=== PATIENT | female | born 1965 | race Caucasian/White ===

== ENCOUNTER 2019-10-02 12:00 | Inpatient (IN) | payer OTHER ==
--- NOTE | 2019-10-02 13:18 | PDOC ---
History of Present Illness - General Chief Complaint: Cold Symptoms Stated Complaint: PNEUMONIA Time Seen by Provider: 10/02/19 12:33 History Source: Patient - History of Present Illness Initial Comments: 10/02/19 13:14 54 yo F PMH HTN, HLD, psoriatic arthritis presents with 4 days subjective fevers , chills, and productive cough. Pt states that since sunday she has been having these symptoms. she states that she tried using Nyquil flu medication without relief. She went to urgent care today and was sent by EMS to ER bc her O2 sat was in the 80s. Pt denies SOB, CP, palpitations. 10/02/19 13:23 Past History - Past Medical History Allergies/Adverse Reactions: Allergies Allergy/AdvReac Type Severity Reaction Status Date / Time latex Allergy Verified 10/02/19 12:29 Home Medications: Ambulatory Orders Atenolol [Tenormin -] 100 mg PO DAILY 05/29/16 Atorvastatin Ca [Lipitor] 20 mg PO HS 05/29/16 Losartan/Hydrochlorothiazide [Losartan-Hctz 100-25 mg Tab] 1 each PO DAILY 05/29 Methotrexate Sodium [Trexall] 10 mg PO WEEKLY 10/02/19 Sulfadiazine 1,000 mg PO BID 10/02/19 COPD: No HTN: Yes Hypercholesterolemia: Yes - Psycho Social/Smoking Cessation Hx Smoking History: Never smoked Hx Alcohol Use: No Drug/Substance Use Hx: No Review of Systems - Review of Systems Able to Perform ROS?: Yes Constitutional: Yes: Chills, Fever. No: Weakness HEENTM: No: Difficulty Swallowing Respiratory: Yes: Cough, Productive cough. No: Shortness of Breath, Wheezing Cardiac (ROS): No: Chest Pain, Chest Tightness ABD/GI: No: Diarrhea, Nausea, Vomiting : No: Dysuria Musculoskeletal: Yes: Joint Pain Neurological: Yes: Headache *Physical Exam - Vital Signs Last Vital Signs Temp Pulse Resp BP Pulse Ox 98.3 F 83 22 H 105/56 L 95 10/02/19 12:30 10/02/19 12:30 10/02/19 12:30 10/02/19 12:30 10/02/19 12:30 - Physical Exam General Appearance: Yes: Nourished, Appropriately Dressed HEENT: positive: Normal Voice Respiratory/Chest: positive: Decreased Breath Sounds (at bases), Rhonchi (L>R ) , Wheezing. negative: Respiratory Distress, Accessory Muscle Use Gastrointestinal/Abdominal: positive: Normal Bowel Sounds, Soft. negative: Tender, Distended Extremity: positive: Normal Inspection Integumentary: positive: Normal Color, Dry, Warm Neurologic: positive: Fully Oriented ED Treatment Course - LABORATORY CBC & Chemistry Diagram: 10/02/19 13:20 10/02/19 13:20 - RADIOLOGY Radiology Studies Ordered: Category Date Time Status CHEST X-RAY PORTABLE* [RAD] Stat Radiology 10/02/19 12:53 Ordered Medical Decision Making - Medical Decision Making 10/02/19 13:28 54 yo F presenting with productive cough x 4 days r/o Left pna . will obtain CXR, BCx, CBC. will get flu swab -CMP -EKG 10/02/19 13:30 -questionable Hx of thyroid disorder. will order TSH 10/02/19 13:31 CBC reviewed. no leukocytosis 10/02/19 14:08 cmp reviewed, wnl flu swab negative 10/02/19 15:38 CXR reviewed: L lower pneumonia -ABG -pt desaturates to 84% when ambulates. saturates 92-94% on RA when sitting -ceftriaxone and azithro -admit to medicine Discharge - Discharge Information Problems reviewed: Yes Clinical Impression/Diagnosis: Community acquired pneumonia Qualifiers: Laterality: left Lung location: lower lobe of lung Qualified Code(s): J18.9 - Pneumonia, unspecified organism - Follow up/Referral Referrals: Lexy Graham [Primary Care Provider] - - Patient Discharge Instructions Patient Printed Discharge Instructions: DI for Pneumonia -- Adult Additional Instructions: You came to the hospital for fevers and a cough. We took a Chest X-Ray showing that you have a Left pneumonia. You Flu swab was negative. Please continue to take Augmentin for 5 days. Please continue to take your home medications as prescribed. Please follow up with your primary care physician regarding your healthcare. If you have any new, worsening, or concerning symptoms please return to the ED. - Post Discharge Activity
[2019-10-02 13:27] LABS: BASO % 0.6 % (0-2.0); EOS % 2.9 % (0-4.5); HEMATOCRIT 35.5 % (32.4-45.2); HEMOGLOBIN 11.5 GM/dL (10.7-15.3); LYMPH % 10.9 % (8-40); MCH 29.9 pg (25.7-33.7); MCHC 32.4 g/dl (32.0-36.0); MEAN CELL VOLUME 92.2 fl (80-96); MONO % 11.4 % (3.8-10.2); NEUT % 74.2 % (42.8-82.8); PLATELET COUNT 226 K/MM3 (134-434); RBC 3.85 M/mm3 (3.60-5.2); RDW 13.8 % (11.6-15.6)
[2019-10-02] MEDS ORDERED: ALBUTEROL SO4 2.5/IPRATROPIUM 0.5 INH SOL 3 ML VIAL.NEB. NEB ONE ×2 (13:34→13:42)
[2019-10-02 14:04] LABS: BILIRUBIN,TOTAL 0.4 mg/dL (0.2-1); BLOOD UREA NITROGEN 14.2 mg/dL (7-18); CREATININE 0.6 mg/dL (0.55-1.3); PHOSPHOROUS 4.2 mg/dL (2.5-4.9); POTASSIUM 3.6 mmol/L (3.5-5.1); TOT PROT 6.9 g/dl (6.4-8.2)
--- NOTE | 2019-10-02 14:45 | EKG ---
Test Reason : Blood Pressure : / mmHG Vent. Rate : 081 BPM Atrial Rate : 081 BPM P-R Int : 128 ms QRS Dur : 084 ms QT Int : 368 ms P-R-T Axes : 058 008 035 degrees QTc Int : 427 ms NORMAL SINUS RHYTHM NORMAL ECG NO PREVIOUS ECGS AVAILABLE Confirmed by CHARANJIT HARDIN MD ([id number]) on 10/02/2019 2:44:58 PM Referred By: Confirmed By:CHARANJIT HARDIN MD
[2019-10-02] MEDS ORDERED: CEFTRIAXONE 1,000 MG in DEXTROSE 5%-WATER - 50 ML IVPB ONE (14:57)
[2019-10-02] MEDS ORDERED: AZITHROMYCIN IVPB 500 MG in DEXTROSE 5%-WATER - 250 ML IVPB ONE (14:57)
[2019-10-02] MEDS ORDERED: AZITHROMYCIN IVPB 500 MG/250 ML BAG IVPB ONE ×2 (15:04→15:18)
[2019-10-02] MEDS ORDERED: CEFTRIAXONE 1 GM/50 ML BAG ONE (15:04)
--- NOTE | 2019-10-02 15:55 | PDOC ---
Documentation entered by Olamide Thomas SCRIBE, acting as scribe for Rebel Grubbs MD. Rebel Grubbs MD: This documentation has been prepared by the Martha gonzalez Nirvannie, SCRIBE, under my direction and personally reviewed by me in its entirety. I confirm that the documentation accurately reflects all work, treatment, procedures, and medical decision making performed by me. Attending Attestation - Resident Resident Name: Lauren Blanca - ED Attending Attestation I have performed the following: I have examined & evaluated the patient, The case was reviewed & discussed with the resident, I agree w/resident's findings & plan, Exceptions are as noted - HPI HPI: 10/02/19 13:40 The patient is a 54 year old female, with a significant past medical history of HTN, HLD, and psoriatic arthritis on methotrexate, who presents to the emergency department with 4 days of nonproductive cough with subjective fevers and chills. As per patient, she was seen in urgent care for similar symptoms at which time she was advised to report to the ED secondary to an O2 saturation in the 80s. She denies recent nausea, vomiting, diarrhea or constipation. She denies recent dysuria, frequency, urgency or hematuria. She denies recent chest pain or shortness of breath. Denies headache, dizziness, focal weakness/numbness Allergies: Latex. Primary Care Physician: Dr. Graham - Physicial Exam PE: 10/02/19 15:48 agree with resident exam - Medical Decision Making 10/02/19 15:49 54-year-old female with multiple medical problems including psoriatic arthritis on methotrexate presents the emergency department with cold symptoms and hypoxia at urgent care. Patient hypoxic here at rest to the low 90s. She has diminished breath sounds in her left lung base as well as mild wheezing. Chest x-ray is consistent with pneumonia. We trialed nebulizer treatments for her hypoxia, however herAmbulatory sat was in the mid 80s. She is also immuncompromised given weekly methotrexate. As such we will admit the patient. She has been covered with ceftriaxone and Azithromycin for presumed community-acquired pneumonia. Heart Score/ECG Review #1 10/02/19 15:55 Twelve-lead EKG was performed and reviewed by me. Normal sinus rhythm, rate 81. Normal axis and intervals. No ST elevations or T wave inversions.
--- NOTE | 2019-10-02 17:23 | HP ---
CHIEF COMPLAINT: shortness of breath PCP: Dr. Lexy Graham, [place] HISTORY OF PRESENT ILLNESS: Patient is a 54 year old female with a significant past medical history of hypertension, hyperlipidemia, psoriatic arthritis (on weekly methotrexate - gets doses every Sunday). Patient presents to the ED from urgent care and reports four days of subjective fevers, chills, congestion and productive cough. Patient states symptoms have been going on for almost a week. She has used over the counter medications without relief. She went to urgent care to be evaluated but was found to have low oxygen saturation in the 80s and was transferred to [facility] for further evaluation. She denies any chest pain, denies palpitations. In the ED she was hypoxic at rest to the low 90s and dropped to the 80s with ambulation. She has mild wheezing of her anterior lungs and her left lung base is diminished. Chest xray shows possible left lung pneumonia. She was given nebulizer treatents for her hypoxia, however, her oxygen sats remained low. She will be admitted for treatment of community acquired pnemonia and will started on IV antibiotics. ID has been consulted for possible start of zosyn as patient is immunocompromised. 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 She report that her last dose of methotrexate was on Sunday , September 26 which she gets for psoratic arthritis (diagnosed on April 2018). ER course was notable for: (1) wbc 8.0, neg. flu (2) chest xray: new left perihilar infiltration (3) blood cultures collected and pending (4) ceftraxone and azithromycin in ED Recent Travel: denies PAST MEDICAL/SURGICAL HISTORY: hypertension, hyperlipidemia, psoriatic arthritis (on weekly methotrexate - gets doses every Sunday). Social History: Smoking: none reported Alcohol: none reported Drugs: none reported Allergies latex Allergy (Verified 10/02/19 12:29) HOME MEDICATIONS: Home Medications Medication Instructions Recorded Atenolol [Tenormin -] 100 mg PO DAILY 05/29/16 Atorvastatin Ca [Lipitor] 20 mg PO HS 05/29/16 Losartan/Hydrochlorothiazide 1 each PO DAILY 05/29/16 [Losartan-Hctz 100-25 mg Tab] Methotrexate Sodium [Trexall] 10 mg PO WEEKLY 10/02/19 Sulfadiazine 1,000 mg PO BID 10/02/19 PHYSICAL EXAMINATION Vital Signs - 24 hr 10/02/19 10/02/19 10/02/19 12:30 13:26 15:01 Temperature 98.3 F Pulse Rate 83 Pulse Rate [ 78 Radial] Respiratory 22 H 22 H Rate Blood Pressure 105/56 L O2 Sat by Pulse 95 91 L 85 L Oximetry (%) 10/02/19 15:34 Temperature Pulse Rate Pulse Rate [ Radial] Respiratory Rate Blood Pressure O2 Sat by Pulse 91 L Oximetry (%) GENERAL: Awake, alert, and fully oriented, in no acute distress. HEAD: Normal with no signs of trauma. EYES: Pupils equal, round and reactive to light, extraocular movements intact, sclera anicteric, conjunctiva clear. No lid lag. EARS, NOSE, THROAT: Ears normal, nares patent, oropharynx clear without exudates. Moist mucous membranes. NECK: Normal range of motion, supple without lymphadenopathy, JVD, or masses. LUNGS: mild wheezing on anterior lungs, left lung diminished HEART: Regular rate and rhythm ABDOMEN: Soft, nontender, not distended, normoactive bowel sounds, no guarding, no rebound, no masses. No hepatomegaly or splenomegaly. MUSCULOSKELETAL: No CVA tenderness. UPPER EXTREMITIES: No clubbing. No peripheral edema. LOWER EXTREMITIES: No peripheral edema. NEUROLOGICAL: Normal speech. Normal gait. PSYCHIATRIC: Cooperative. Good eye contact. Appropriate mood and affect. SKIN: Warm, dry, normal turgor, no rashes or lesions noted, normal capillary refill. Laboratory Results - last 24 hr 10/02/19 10/02/19 10/02/19 13:00 13:20 13:20 WBC 8.0 RBC 3.85 Hgb 11.5 Hct 35.5 MCV 92.2 MCH 29.9 MCHC 32.4 RDW 13.8 Plt Count 226 MPV 8.0 Absolute Neuts (auto) 5.9 Neutrophils % 74.2 Lymphocytes % 10.9 Monocytes % 11.4 H Eosinophils % 2.9 Basophils % 0.6 Nucleated RBC % 0 Sodium 137 Potassium 3.6 Chloride 103 Carbon Dioxide 27 Anion Gap 7 L BUN 14.2 Creatinine 0.6 Est GFR (CKD-EPI)AfAm 118.93 Est GFR (CKD-EPI)NonAf 102.61 Random Glucose 103 Calcium 9.0 Phosphorus 4.2 Magnesium 2.0 Total Bilirubin 0.4 AST 23 ALT 49 Alkaline Phosphatase 103 Total Protein 6.9 Albumin 4.0 TSH Influenza A (Rapid) Negative Influenza B (Rapid) Negative 10/02/19 13:20 WBC RBC Hgb Hct MCV MCH MCHC RDW Plt Count MPV Absolute Neuts (auto) Neutrophils % Lymphocytes % Monocytes % Eosinophils % Basophils % Nucleated RBC % Sodium Potassium Chloride Carbon Dioxide Anion Gap BUN Creatinine Est GFR (CKD-EPI)AfAm Est GFR (CKD-EPI)NonAf Random Glucose Calcium Phosphorus Magnesium Total Bilirubin AST ALT Alkaline Phosphatase Total Protein Albumin TSH 2.65 Influenza A (Rapid) Influenza B (Rapid) ASSESSMENT/PLAN: Problem List - Problem (1) Community acquired pneumonia Assessment/Plan: patient presents from urgent care with low oxygen saturations, dyspnea on physical exertion, fevers and chills. chest xray shows acute left lower lobe pnemonia patient is immunocompromised on methotrexate for psioratic arthritis ID consulted for broad spectrum coverage pending cultures place on oxygen 2 liters and wean off as tolerated may need further imaging to evaluate pneumonia Code(s): J18.9 - PNEUMONIA, UNSPECIFIED ORGANISM Qualifiers: Laterality: left Lung location: lower lobe of lung Qualified Code(s): J18.9 - Pneumonia, unspecified organism (2) Acute respiratory failure with hypoxia Assessment/Plan: duonebs, on 2 liters of nasal cannula. maintain oxygen levels above 93% on 2 liters, then wean off as tolerated. pre and post prior to discharge Code(s): J96.01 - ACUTE RESPIRATORY FAILURE WITH HYPOXIA (3) Immunosuppression Assessment/Plan: on weekly methotraxate, last received on 09/26/2019 Code(s): D89.9 - DISORDER INVOLVING THE IMMUNE MECHANISM, UNSPECIFIED (4) Psoriatic arthritis Code(s): L40.50 - ARTHROPATHIC PSORIASIS, UNSPECIFIED (5) Prophylactic measure Assessment/Plan: fen tolerating po d/c ivf monitor electrolytes full code Code(s): Z29.9 - ENCOUNTER FOR PROPHYLACTIC MEASURES, UNSPECIFIED Visit type - Emergency Visit Emergency Visit: Yes ED Registration Date: 10/02/19 Care time: The patient presented to the Emergency Department on the above date and was hospitalized for further evaluation of their emergent condition. - New Patient This patient is new to me today: Yes Date on this admission: 10/03/19 - Critical Care Critical Care patient: No
[2019-10-02] MEDS ORDERED: ACETAMINOPHEN 325 MG TABLET (FP) PO PRN (17:25)
[2019-10-02] MEDS ORDERED: ALBUTEROL SO4 2.5/IPRATROPIUM 0.5 INH SOL 3 ML VIAL.NEB. NEB PRN (17:26)
[2019-10-02] MEDS ORDERED: CEFTRIAXONE 1 GM in DEXTROSE 5%-WATER - 50 ML IVPB ONE (17:28)
[2019-10-02] MEDS ORDERED: ACETAMINOPHEN 325 MG TABLET (FP) ONE (18:42)
[2019-10-02 19:03] LABS: ARTERIAL BLD GAS O2 SATURATION 91.5 % (95-98); ARTERIAL BLOOD GAS BASE EXCESS 2.4 meq/l (-2-2); ARTERIAL BLOOD GAS PCO2 36.3 mmHg (35-45); ARTERIAL BLOOD GAS PO2 65.1 mmHg (80-100); ARTERIAL BLOOD GAS pH 7.46 (7.35-7.45); CARBOXYHEMOGLOBIN 0.5 % (0-2)
[2019-10-02] MEDS: ATORVASTATIN CA 20 MG TABLET (FP) PO SCH (22:09)
[2019-10-02] MEDS: LABETALOL HCL 100 MG TABLET (FP) PO SCH (22:09)
[2019-10-03] MEDS ORDERED: PIPERACILLIN/TAZOBACTAM 3.375 GM VIAL IVPB ONE ×3 (02:53→19:08)
[2019-10-03] MEDS ORDERED: DEXTROSE 5%-WATER - 50 ML IVPB ONE ×3 (02:53→19:08)
[2019-10-03] MEDS: PIPERACILLIN/TAZOB 3.375 GM 3.375 GM in DEXTROSE 5%-WATER - 50 ML IVPB SCH ×3 (02:59→19:09)
[2019-10-03 04:41] VITALS: BMI 35.4
[2019-10-03] MEDS ORDERED: PT OWN MED DRAWER 7, Y5N ONE ×2 (07:04→09:34)
[2019-10-03 08:28] LABS: HEMATOCRIT 32.7 % (32.4-45.2); HEMOGLOBIN 10.8 GM/dL (10.7-15.3); MCH 30.2 pg (25.7-33.7); MCHC 33.2 g/dl (32.0-36.0); MEAN PLT VOLUME 7.7 fl (7.5-11.1); PLATELET COUNT 238 K/MM3 (134-434); RBC 3.59 M/mm3 (3.60-5.2); RDW 13.8 % (11.6-15.6); WHITE BLOOD COUNT 6.5 K/mm3 (4.0-10.0)
[2019-10-03 08:56] LABS: BLOOD UREA NITROGEN 10.9 mg/dL (7-18); CALCIUM 9.1 mg/dL (8.5-10.1); CREATININE 0.6 mg/dL (0.55-1.3); POTASSIUM 3.4 mmol/L (3.5-5.1)
[2019-10-03] MEDS: LABETALOL HCL 100 MG TABLET (FP) PO SCH ×2 (09:33→21:24)
[2019-10-03] MEDS ORDERED: AZITHROMYCIN IVPB 500 MG/250 ML BAG IVPB SCH (10:00)
[2019-10-03] MEDS: LOSARTAN 50MG/HCTZ 12.5MG 1 TAB (FP) PO SCH (10:44)
--- NOTE | 2019-10-03 12:20 | CON.ID ---
Consult Consult Specialty:: infectious diseases - Alcohol/Substance Use Hx Alcohol Use: No - Smoking History Smoking history: Never smoked Home Medications - Allergies Allergies/Adverse Reactions: Allergies Allergy/AdvReac Type Severity Reaction Status Date / Time latex Allergy Verified 10/02/19 12:29 - Home Medications Home Medications: Ambulatory Orders Atenolol [Tenormin -] 100 mg PO DAILY 05/29/16 Atorvastatin Ca [Lipitor] 20 mg PO HS 05/29/16 Losartan/Hydrochlorothiazide [Losartan-Hctz 100-25 mg Tab] 1 each PO DAILY 05/29 Methotrexate Sodium [Trexall] 10 mg PO WEEKLY 10/02/19 Sulfadiazine 1,000 mg PO BID 10/02/19 Physical Exam Vital Signs: Vital Signs Temperature 98.4 F 10/03/19 10:00 Pulse Rate 72 10/03/19 10:00 Respiratory Rate 16 10/03/19 10:00 Blood Pressure 146/88 10/03/19 10:00 O2 Sat by Pulse Oximetry (%) 93 L 10/03/19 09:00 Labs: CBC, BMP 10/03/19 08:10 10/03/19 08:10
[2019-10-03] MEDS: guaiFENesin 600 MG TABLET.ER (FP) PO SCH ×2 (12:55→21:24)
--- NOTE | 2019-10-03 13:02 | PN ---
Progress Note (short form) - Note Progress Note: PULMONARY CONSULTATION DICTATED 10/03/19 IMP ACUTE HYPOXEMIC RESPIRATORY FILURE PNEUMONIA LEFT LUNG PSORIATIC ARTHRITIS ON METHOTREXATE HTN HLD PLAN ABX PER ID INHALED BRONCHODILATORS SUPPLEMENTAL O2 CHEST CT LEGIONELLA URINARY ANTIGEN CULTURES DR BERNAL Problem List - Problems (1) Acute respiratory failure with hypoxia Code(s): J96.01 - ACUTE RESPIRATORY FAILURE WITH HYPOXIA (2) Community acquired pneumonia Code(s): J18.9 - PNEUMONIA, UNSPECIFIED ORGANISM Qualifiers: Laterality: left Lung location: lower lobe of lung Qualified Code(s): J18.9 - Pneumonia, unspecified organism (3) Psoriatic arthritis Code(s): L40.50 - ARTHROPATHIC PSORIASIS, UNSPECIFIED (4) Immunosuppression Code(s): D89.9 - DISORDER INVOLVING THE IMMUNE MECHANISM, UNSPECIFIED
--- NOTE | 2019-10-03 13:50 | CONS ---
PULMONARY CONSULTATION DATE OF CONSULTATION: 10/03/2019 REFERRING PHYSICIAN: FER Worley HISTORY: Patient is a 54-year-old female with past medical history of psoriatic arthritis maintained on methotrexate and sulfadiazine, hypertension, hyperlipidemia, nonsmoker. Admitted to [facility] with complaint of a 4-day history of fever, chills, and productive cough. Patient states she was doing well until Sunday when she started developing fever, chills, and this cough productive of yellowish sputum. Denied any chest pain. She also complained of increasing shortness of breath with exertion. She denied any hemoptysis. She went to an urgent care center on the day of admission. Was sent to the emergency room by EMS. At the time, she was noted to be O2 saturations in the 80s at the urgent care center. On admission, the patient had chest x-ray performed, which revealed large perihilar infiltrate. She was admitted to the floor. She was started on broad-spectrum antibiotics. As stated before, she is a nonsmoker. She denies any history of occupational exposure to chemicals or fumes. There is no history of recent travel. She states that she has been maintained on methotrexate for approximately 6 months and sulfadiazine approximately a year and a half, 2 years. She is soon to be placed on a biologic. Patient denies any history of TB. PAST MEDICAL HISTORY: Again includes psoriatic arthritis, hypertension, hyperlipidemia. REVIEW OF SYSTEMS: Positive dyspnea on exertion. Positive cough. No chest pain, no palpitations, no hemoptysis, no abdominal pain, no nausea, no vomiting. CURRENT MEDICATIONS: Include Tylenol, Hyzaar, Zosyn, DuoNeb, Normodyne, Mucinex, and Lipitor. PHYSICAL EXAMINATION: General: Patient is a well-developed, well-nourished female awake and alert in no acute distress. Vital Signs: She is afebrile. Blood pressure 146/88, respiratory rate is 18, O2 saturation is 93% on 3 L nasal cannula. HEENT: Normocephalic, atraumatic. Neck: Supple. Heart: Regular with S1, S2. Chest: Crackles on the left. Abdomen: Soft. Bowel sounds are positive. Extremities: No cyanosis or edema. LABORATORIES: WBC is 6.5, hemoglobin 10.8, hematocrit 32.7 with a platelet count of 238,000. Blood gas; pH 7.46, PCO2 of 36, PO2 of 65, bicarbonate of 25, and saturation of 91 on unknown quantity of oxygen. Chemistries; BUN is 10, creatinine 0.6. Rapid influenza is negative. IMPRESSION: 1. Acute hypoxic respiratory failure secondary to extensive left-sided pneumonia. 2. Psoriatic arthritis on methotrexate and sulfadiazine. 3. Hypertension. 4. Hyperlipidemia. PLAN: Broad-spectrum antibiotics as per Infectious Disease. Supplemental O2 to maintain O2 saturation 90% or great. Inhaled bronchodilators. Obtain CT scan of the chest. Serum for cold agglutinins. Legionella urine antigen. Obtain follow up chest x-rays. LIZZETTE BERNAL M.D. MARTÍNEZ/[id number]
--- NOTE | 2019-10-03 17:04 | PN ---
Physical Exam: SUBJECTIVE: Patient seen and examined OBJECTIVE: Vital Signs Period Temp Pulse Resp BP Sys/Shankar Pulse Ox Last 24 Hr 98.4 F-100.6 F 72-105 16-22 117-151/71-88 88-94 GENERAL: The patient is awake, alert, and fully oriented, in no acute distress. HEAD: Normal with no signs of trauma. EYES: PERRL, extraocular movements intact, sclera anicteric, conjunctiva clear. No ptosis. ENT: Ears normal, nares patent, oropharynx clear without exudates, moist mucous membranes. NECK: Trachea midline, full range of motion, supple. LUNGS: Breath sounds equal, clear to auscultation bilaterally, no wheezes, no crackles, no accessory muscle use. HEART: Regular rate and rhythm, S1, S2 without murmur, rub or gallop. ABDOMEN: Soft, nontender, nondistended, normoactive bowel sounds, no guarding, no rebound, no hepatosplenomegaly, no masses. EXTREMITIES: 2+ pulses, warm, well-perfused, no edema. NEUROLOGICAL: Cranial nerves II through XII grossly intact. Normal speech, gait not observed. PSYCH: Normal mood, normal affect. SKIN: Warm, dry, normal turgor, no rashes or lesions noted Laboratory Results - last 24 hr 10/02/19 10/02/19 10/02/19 13:20 18:46 21:10 WBC RBC Hgb Hct MCV MCH MCHC RDW Plt Count MPV Anticoagulation Therapy No Result Required. Puncture Site No Result Required. ABG pH 7.46 H ABG pCO2 at Pt Temp 36.3 ABG pO2 at Pt Temp 65.1 L ABG HCO3 25.6 ABG O2 Sat (Measured) 91.5 L ABG O2 Content 14.1 ABG Base Excess 2.4 H Pedro Test No Result Required. Carboxyhemoglobin 0.5 Methemoglobin 1.3 O2 Delivery Device No Result Required. Oxygen Flow Rate No Result Required. Vent Mode No Result Required. Vent Rate No Result Required. Mechanical Rate No Result Required. Pressure Support Vent No Result Required. Sodium Potassium Chloride Carbon Dioxide Anion Gap BUN Creatinine Est GFR (CKD-EPI)AfAm Est GFR (CKD-EPI)NonAf Random Glucose Calcium Magnesium Troponin I < 0.02 < 0.02 TSH 2.65 10/03/19 10/03/19 08:10 08:10 WBC 6.5 RBC 3.59 L Hgb 10.8 Hct 32.7 MCV 91.0 MCH 30.2 MCHC 33.2 RDW 13.8 Plt Count 238 MPV 7.7 Anticoagulation Therapy Puncture Site ABG pH ABG pCO2 at Pt Temp ABG pO2 at Pt Temp ABG HCO3 ABG O2 Sat (Measured) ABG O2 Content ABG Base Excess Pedro Test Carboxyhemoglobin Methemoglobin O2 Delivery Device Oxygen Flow Rate Vent Mode Vent Rate Mechanical Rate Pressure Support Vent Sodium 137 Potassium 3.4 L Chloride 100 Carbon Dioxide 28 Anion Gap 9 BUN 10.9 Creatinine 0.6 Est GFR (CKD-EPI)AfAm 118.93 Est GFR (CKD-EPI)NonAf 102.61 Random Glucose 111 H Calcium 9.1 Magnesium 2.0 Troponin I TSH Active Medications Generic Name Dose Route Start Last Admin Trade Name Freq PRN Reason Stop Dose Admin Acetaminophen 650 mg 10/02/19 17:25 10/02/19 18:48 Tylenol - PO 650 mg Q6H PRN Administration FEVER Albuterol/Ipratropium 1 amp 10/02/19 17:26 Duoneb - NEB Q6H PRN SHORTNESS OF BREATH Atorvastatin Calcium 20 mg 10/02/19 22:00 10/02/19 22:09 Lipitor - PO 20 mg HS JOSÉ MIGUEL Administration Azithromycin 500 mg 10/04/19 10:00 Zithromax - PO DAILY JOSÉ MIGUEL Guaifenesin 600 mg 10/03/19 12:45 10/03/19 12:55 Mucinex - PO 600 mg BID JOSÉ MIGUEL Administration HCTZ/Losartan Potassium 2 tab 10/03/19 10:00 10/03/19 10:44 Hyzaar - PO 2 tab DAILY JOSÉ MIGUEL Administration Piperacillin Sod/Tazobactam 50 mls @ 100 mls/hr 10/03/19 02:00 10/03/19 09:33 Sod 3.375 gm/ Dextrose IVPB 100 mls/hr Q8H-IV JOSÉ MIGUEL Administration Protocol Labetalol HCl 100 mg 10/02/19 22:00 10/03/19 09:33 Normodyne - PO 100 mg BID JOSÉ MIGUEL Administration ASSESSMENT/PLAN: Visit type - Emergency Visit Emergency Visit: Yes ED Registration Date: 10/02/19 Care time: The patient presented to the Emergency Department on the above date and was hospitalized for further evaluation of their emergent condition. - New Patient This patient is new to me today: Yes Date on this admission: 10/03/19 - Critical Care Critical Care patient: No - Discharge Referral Referred to [facility] No
--- NOTE | 2019-10-03 18:43 | PN ---
Physical Exam: SUBJECTIVE: Patient seen and examined, now with a productive cough with green sputum. will send for sputum culture. OBJECTIVE: called her PCP office Lexy Graham MD and spoke to Rabia BURLESON. reconciled medications and made her primary care doctor aware patient is at [facility] for [facility]. Patient is a 54 year old female with a significant past medical history of hypertension, hyperlipidemia, psoriatic arthritis (on weekly methotrexate - gets doses every Sunday). Patient presents to the ED from urgent care and reports four days of subjective fevers, chills, congestion and productive cough. Patient states symptoms have been going on for almost a week. She has used over the counter medications without relief. She went to urgent care to be evaluated but was found to have low oxygen saturation in the 80s and was transferred to [facility] for further evaluation. She denies any chest pain, denies palpitations. In the ED she was hypoxic at rest to the low 90s and dropped to the 80s with ambulation. She has mild wheezing of her anterior lungs and her left lung base is diminished. Chest xray shows possible left lung pneumonia. will send for a chest ct. Vital Signs Period Temp Pulse Resp BP Sys/Shankar Pulse Ox Last 24 Hr 98.4 F-99.0 F 72-91 16-22 117-149/71-88 93-94 GENERAL: Awake, alert, and fully oriented, in no acute distress. HEAD: Normal with no signs of trauma. EYES: Pupils equal, round and reactive to light, extraocular movements intact, sclera anicteric, conjunctiva clear. No lid lag. EARS, NOSE, THROAT: Ears normal, nares patent, oropharynx clear without exudates. Moist mucous membranes. NECK: Normal range of motion, supple without lymphadenopathy, JVD, or masses. LUNGS: mild wheezing on anterior lungs, left lung diminished - productive cough with green phelgm HEART: Regular rate and rhythm ABDOMEN: Soft, nontender, not distended, normoactive bowel sounds, no guarding, no rebound, no masses. No hepatomegaly or splenomegaly. MUSCULOSKELETAL: No CVA tenderness. UPPER EXTREMITIES: No clubbing. No peripheral edema. LOWER EXTREMITIES: No peripheral edema. NEUROLOGICAL: Normal speech. Normal gait. PSYCHIATRIC: Cooperative. Good eye contact. Appropriate mood and affect. SKIN: Warm, dry, normal turgor, no rashes or lesions noted, normal capillary refill. Laboratory Results - last 24 hr 10/02/19 10/02/19 10/02/19 13:20 18:46 21:10 WBC RBC Hgb Hct MCV MCH MCHC RDW Plt Count MPV Anticoagulation Therapy No Result Required. Puncture Site No Result Required. ABG pH 7.46 H ABG pCO2 at Pt Temp 36.3 ABG pO2 at Pt Temp 65.1 L ABG HCO3 25.6 ABG O2 Sat (Measured) 91.5 L ABG O2 Content 14.1 ABG Base Excess 2.4 H Pedro Test No Result Required. Carboxyhemoglobin 0.5 Methemoglobin 1.3 O2 Delivery Device No Result Required. Oxygen Flow Rate No Result Required. Vent Mode No Result Required. Vent Rate No Result Required. Mechanical Rate No Result Required. Pressure Support Vent No Result Required. Sodium Potassium Chloride Carbon Dioxide Anion Gap BUN Creatinine Est GFR (CKD-EPI)AfAm Est GFR (CKD-EPI)NonAf Random Glucose Calcium Magnesium Troponin I < 0.02 < 0.02 TSH 2.65 10/03/19 10/03/19 08:10 08:10 WBC 6.5 RBC 3.59 L Hgb 10.8 Hct 32.7 MCV 91.0 MCH 30.2 MCHC 33.2 RDW 13.8 Plt Count 238 MPV 7.7 Anticoagulation Therapy Puncture Site ABG pH ABG pCO2 at Pt Temp ABG pO2 at Pt Temp ABG HCO3 ABG O2 Sat (Measured) ABG O2 Content ABG Base Excess Pedro Test Carboxyhemoglobin Methemoglobin O2 Delivery Device Oxygen Flow Rate Vent Mode Vent Rate Mechanical Rate Pressure Support Vent Sodium 137 Potassium 3.4 L Chloride 100 Carbon Dioxide 28 Anion Gap 9 BUN 10.9 Creatinine 0.6 Est GFR (CKD-EPI)AfAm 118.93 Est GFR (CKD-EPI)NonAf 102.61 Random Glucose 111 H Calcium 9.1 Magnesium 2.0 Troponin I TSH Active Medications Generic Name Dose Route Start Last Admin Trade Name Freq PRN Reason Stop Dose Admin Acetaminophen 650 mg 10/02/19 17:25 10/02/19 18:48 Tylenol - PO 650 mg Q6H PRN Administration FEVER Albuterol/Ipratropium 1 amp 10/02/19 17:26 Duoneb - NEB Q6H PRN SHORTNESS OF BREATH Atorvastatin Calcium 20 mg 10/02/19 22:00 10/02/19 22:09 Lipitor - PO 20 mg HS JOSÉ MIGUEL Administration Azithromycin 500 mg 10/04/19 10:00 Zithromax - PO DAILY JOSÉ MIGUEL Guaifenesin 600 mg 10/03/19 12:45 10/03/19 12:55 Mucinex - PO 600 mg BID JOSÉ MIGUEL Administration HCTZ/Losartan Potassium 2 tab 10/03/19 10:00 10/03/19 10:44 Hyzaar - PO 2 tab DAILY JOSÉ MIGUEL Administration Piperacillin Sod/Tazobactam 50 mls @ 100 mls/hr 10/03/19 02:00 10/03/19 09:33 Sod 3.375 gm/ Dextrose IVPB 100 mls/hr Q8H-IV JOSÉ MIGUEL Administration Protocol Labetalol HCl 100 mg 10/02/19 22:00 10/03/19 09:33 Normodyne - PO 100 mg BID JOSÉ MIGUEL Administration ASSESSMENT/PLAN: Problem List - Problems (1) Community acquired pneumonia Assessment/Plan: patient presents from urgent care with low oxygen saturations, dyspnea on physical exertion, fevers and chills. chest xray shows acute left lower lobe pnemonia patient is immunocompromised on methotrexate for psioratic arthritis ID consulted for broad spectrum coverage pending cultures, on zosyn per ID place on oxygen 2 liters and wean off as tolerated for chest ct Code(s): J18.9 - PNEUMONIA, UNSPECIFIED ORGANISM Qualifiers: Laterality: left Lung location: lower lobe of lung Qualified Code(s): J18.9 - Pneumonia, unspecified organism (2) Acute respiratory failure with hypoxia Assessment/Plan: duonebs, on 2 liters of nasal cannula. maintain oxygen levels above 93% on 2 liters, then wean off as tolerated. pre and post prior to discharge Code(s): J96.01 - ACUTE RESPIRATORY FAILURE WITH HYPOXIA (3) Immunosuppression Assessment/Plan: on weekly methotraxate, last received on 09/26/2019 Code(s): D89.9 - DISORDER INVOLVING THE IMMUNE MECHANISM, UNSPECIFIED (4) Psoriatic arthritis Code(s): L40.50 - ARTHROPATHIC PSORIASIS, UNSPECIFIED (5) Prophylactic measure Assessment/Plan: fen tolerating po d/c ivf monitor electrolytes full code Code(s): Z29.9 - ENCOUNTER FOR PROPHYLACTIC MEASURES, UNSPECIFIED (6) Hypertension Assessment/Plan: controlled on labetolol 200mb bid, losartan 100, hctz 25 Code(s): I10 - ESSENTIAL (PRIMARY) HYPERTENSION Visit type - Emergency Visit Emergency Visit: Yes ED Registration Date: 10/02/19 Care time: The patient presented to the Emergency Department on the above date and was hospitalized for further evaluation of their emergent condition. - New Patient This patient is new to me today: No - Critical Care Critical Care patient: No - Discharge Referral Referred to [facility] No
[2019-10-03] MEDS ORDERED: POTASSIUM CHLORIDE TABS 20 MEQ TABLET.ER (FP) PO ONE (18:47)
[2019-10-03] MEDS: ATORVASTATIN CA 20 MG TABLET (FP) PO SCH (21:24)
[2019-10-04] MEDS ORDERED: PIPERACILLIN/TAZOBACTAM 3.375 GM VIAL IVPB ONE ×3 (02:28→17:13)
[2019-10-04] MEDS ORDERED: DEXTROSE 5%-WATER - 50 ML IVPB ONE ×3 (02:29→17:13)
[2019-10-04] MEDS: PIPERACILLIN/TAZOB 3.375 GM 3.375 GM in DEXTROSE 5%-WATER - 50 ML IVPB SCH ×3 (02:42→17:42)
[2019-10-04 08:46] LABS: BASO % 1.2 % (0-2.0); EOS % 5.6 % (0-4.5); HEMATOCRIT 32.5 % (32.4-45.2); HEMOGLOBIN 10.9 GM/dL (10.7-15.3); LYMPH % 25.7 % (8-40); MCH 30.5 pg (25.7-33.7); MCHC 33.6 g/dl (32.0-36.0); MEAN CELL VOLUME 90.8 fl (80-96); MEAN PLT VOLUME 7.7 fl (7.5-11.1); MONO % 11.7 % (3.8-10.2); NEUT % 55.8 % (42.8-82.8); PLATELET COUNT 281 K/MM3 (134-434); RBC 3.58 M/mm3 (3.60-5.2); RDW 13.7 % (11.6-15.6)
[2019-10-04 09:05] LABS: ALBUMIN 3.9 g/dl (3.4-5.0); BILIRUBIN,TOTAL 0.2 mg/dL (0.2-1); BLOOD UREA NITROGEN 17.8 mg/dL (7-18); CALCIUM 9.1 mg/dL (8.5-10.1); CREATININE 0.7 mg/dL (0.55-1.3); MAGNESIUM 2.1 mg/dL (1.8-2.4); POTASSIUM 3.8 mmol/L (3.5-5.1); TOT PROT 6.6 g/dl (6.4-8.2)
[2019-10-04] MEDS: guaiFENesin 600 MG TABLET.ER (FP) PO SCH ×2 (09:45→21:15)
[2019-10-04] MEDS: AZITHROMYCIN 250 MG TABLET PO SCH (09:45)
[2019-10-04] MEDS: LABETALOL HCL 100 MG TABLET (FP) PO SCH ×2 (09:45→21:14)
[2019-10-04] MEDS ORDERED: PT OWN MED DRAWER 7, Y5N ONE (09:47)
[2019-10-04] MEDS: LOSARTAN 50MG/HCTZ 12.5MG 1 TAB (FP) PO SCH (09:48)
--- NOTE | 2019-10-04 12:06 | PN ---
Progress Note, Physician History of Present Illness: PULMONARY ALERT,FEELING BETTER,LESS DYSPNEIC - Current Medication List Current Medications: Active Medications Acetaminophen (Tylenol -) 650 mg PO Q6H PRN PRN Reason: FEVER Last Admin: 10/02/19 18:48 Dose: 650 mg Albuterol/Ipratropium (Duoneb -) 1 amp NEB Q6H PRN PRN Reason: SHORTNESS OF BREATH Atorvastatin Calcium (Lipitor -) 20 mg PO HS [facility] Last Admin: 10/03/19 21:24 Dose: 20 mg Azithromycin (Zithromax -) 500 mg PO DAILY [facility] Last Admin: 10/04/19 09:45 Dose: 500 mg Guaifenesin (Mucinex -) 600 mg PO BID [facility] Last Admin: 10/04/19 09:45 Dose: 600 mg HCTZ/Losartan Potassium (Hyzaar -) 2 tab PO DAILY [facility] Last Admin: 10/04/19 09:48 Dose: 2 tab Piperacillin Sod/Tazobactam (Sod 3.375 gm/ Dextrose) 50 mls @ 100 mls/hr IVPB Q8H-IV JOSÉ MIGUEL; Protocol Last Admin: 10/04/19 09:45 Dose: 100 mls/hr Labetalol HCl (Normodyne -) 100 mg PO BID [facility] Last Admin: 10/04/19 09:45 Dose: 100 mg - Objective Vital Signs: Vital Signs Temperature 98.6 F 10/04/19 10:00 Pulse Rate 72 10/04/19 10:00 Respiratory Rate 20 10/04/19 10:00 Blood Pressure 145/84 10/04/19 10:00 O2 Sat by Pulse Oximetry (%) 95 10/04/19 09:00 Constitutional: Yes: Well Nourished, Calm Eyes: Yes: WNL HENT: Yes: WNL Neck: Yes: WNL Cardiovascular: Yes: Regular Rate and Rhythm, S1, S2 Respiratory: Yes: Rales (CRACKLES ON LEFT) Gastrointestinal: Yes: Normal Bowel Sounds, Soft Extremities: Yes: WNL Edema: No Labs: CBC, BMP 10/04/19 07:10 10/04/19 07:10 Problem List - Problems (1) Acute respiratory failure with hypoxia Code(s): J96.01 - ACUTE RESPIRATORY FAILURE WITH HYPOXIA (2) Community acquired pneumonia Code(s): J18.9 - PNEUMONIA, UNSPECIFIED ORGANISM Qualifiers: Laterality: left Lung location: lower lobe of lung Qualified Code(s): J18.9 - Pneumonia, unspecified organism (3) Psoriatic arthritis Code(s): L40.50 - ARTHROPATHIC PSORIASIS, UNSPECIFIED (4) Immunosuppression Code(s): D89.9 - DISORDER INVOLVING THE IMMUNE MECHANISM, UNSPECIFIED Assessment/Plan IMP ACUTE HYPOXEMIC RESPIRATORY FILURE PNEUMONIA LEFT LUNG PSORIATIC ARTHRITIS ON METHOTREXATE HTN HLD PLAN ABX PER ID INHALED BRONCHODILATORS SUPPLEMENTAL O2 DR BERNAL Problem List - Problems (1) Acute respiratory failure with hypoxia Code(s): J96.01 - ACUTE RESPIRATORY FAILURE WITH HYPOXIA (2) Community acquired pneumonia Code(s): J18.9 - PNEUMONIA, UNSPECIFIED ORGANISM Qualifiers: Laterality: left Lung location: lower lobe of lung Qualified Code(s): J18.9 - Pneumonia, unspecified organism (3) Psoriatic arthritis Code(s): L40.50 - ARTHROPATHIC PSORIASIS, UNSPECIFIED (4) Immunosuppression Code(s): D89.9 - DISORDER INVOLVING THE IMMUNE MECHANISM, UNSPECIFIED
--- NOTE | 2019-10-04 13:04 | PN ---
Progress Note, Physician History of Present Illness: stable no new issues - Current Medication List Current Medications: Active Medications Acetaminophen (Tylenol -) 650 mg PO Q6H PRN PRN Reason: FEVER Last Admin: 10/02/19 18:48 Dose: 650 mg Albuterol/Ipratropium (Duoneb -) 1 amp NEB Q6H PRN PRN Reason: SHORTNESS OF BREATH Atorvastatin Calcium (Lipitor -) 20 mg PO HS [facility] Last Admin: 10/03/19 21:24 Dose: 20 mg Azithromycin (Zithromax -) 500 mg PO DAILY [facility] Last Admin: 10/04/19 09:45 Dose: 500 mg Guaifenesin (Mucinex -) 600 mg PO BID [facility] Last Admin: 10/04/19 09:45 Dose: 600 mg HCTZ/Losartan Potassium (Hyzaar -) 2 tab PO DAILY [facility] Last Admin: 10/04/19 09:48 Dose: 2 tab Piperacillin Sod/Tazobactam (Sod 3.375 gm/ Dextrose) 50 mls @ 100 mls/hr IVPB Q8H-IV JOSÉ MIGUEL; Protocol Last Admin: 10/04/19 09:45 Dose: 100 mls/hr Labetalol HCl (Normodyne -) 100 mg PO BID [facility] Last Admin: 10/04/19 09:45 Dose: 100 mg - Objective Vital Signs: Vital Signs Temperature 98.6 F 10/04/19 10:00 Pulse Rate 72 10/04/19 10:00 Respiratory Rate 20 10/04/19 10:00 Blood Pressure 145/84 10/04/19 10:00 O2 Sat by Pulse Oximetry (%) 95 10/04/19 09:00 Constitutional: Yes: No Distress, Calm Cardiovascular: Yes: S1, S2 Respiratory: Yes: Regular, Poor Air Entry Gastrointestinal: Yes: Normal Bowel Sounds, Soft Musculoskeletal: Yes: WNL Extremities: Yes: WNL Neurological: Yes: Alert, Oriented Psychiatric: Yes: Alert, Oriented Labs: CBC, BMP 10/04/19 07:10 10/04/19 07:10 Assessment/Plan Problem List - Problems (1) Acute respiratory failure with hypoxia Code(s): J96.01 - ACUTE RESPIRATORY FAILURE WITH HYPOXIA (2) Community acquired pneumonia Code(s): J18.9 - PNEUMONIA, UNSPECIFIED ORGANISM Qualifiers: Laterality: left Lung location: lower lobe of lung Qualified Code(s): J18.9 - Pneumonia, unspecified organism (3) Psoriatic arthritis Code(s): L40.50 - ARTHROPATHIC PSORIASIS, UNSPECIFIED (4) Immunosuppression Code(s): D89.9 - DISORDER INVOLVING THE IMMUNE MECHANISM, UNSPECIFIED plan continue abx rest as per the team
--- NOTE | 2019-10-04 16:47 | PN ---
Physical Exam: SUBJECTIVE: Patient seen and examined at the bedside. she is tolerating room air and ambulated with respiratory therapist today. does not require home supplemental oxygen at this time per note. OBJECTIVE: Patient is a 54 year old female with a significant past medical history of hypertension, hyperlipidemia, psoriatic arthritis (on weekly methotrexate - gets doses every Sunday). Patient presents to the ED from urgent care and reports four days of subjective fevers, chills, congestion and productive cough and was found to have a left lower lobe pneumonia. chest ct: pending official read. Vital Signs Period Temp Pulse Resp BP Sys/Shankar Pulse Ox Last 24 Hr 98.4 F-98.8 F 63-97 20-20 109-145/52-84 94-95 GENERAL: Awake, alert, and fully oriented, in no acute distress. HEAD: Normal with no signs of trauma. EYES: Pupils equal, round and reactive to light, extraocular movements intact, sclera anicteric, conjunctiva clear. No lid lag. EARS, NOSE, THROAT: Ears normal, nares patent, oropharynx clear without exudates. Moist mucous membranes. NECK: Normal range of motion, supple without lymphadenopathy, JVD, or masses. LUNGS: mild wheezing on anterior lungs, left lung diminished - productive cough with green phelgm HEART: Regular rate and rhythm ABDOMEN: Soft, nontender, not distended, normoactive bowel sounds, no guarding, no rebound, no masses. No hepatomegaly or splenomegaly. MUSCULOSKELETAL: No CVA tenderness. UPPER EXTREMITIES: No clubbing. No peripheral edema. LOWER EXTREMITIES: No peripheral edema. NEUROLOGICAL: Normal speech. Normal gait. Laboratory Results - last 24 hr 10/04/19 10/04/19 07:10 07:10 WBC 6.0 RBC 3.58 L Hgb 10.9 Hct 32.5 MCV 90.8 MCH 30.5 MCHC 33.6 RDW 13.7 Plt Count 281 MPV 7.7 Absolute Neuts (auto) 3.3 Neutrophils % 55.8 D Lymphocytes % 25.7 D Monocytes % 11.7 H Eosinophils % 5.6 H D Basophils % 1.2 Nucleated RBC % 0 Sodium 139 Potassium 3.8 Chloride 104 Carbon Dioxide 29 Anion Gap 6 L BUN 17.8 Creatinine 0.7 Est GFR (CKD-EPI)AfAm 113.05 Est GFR (CKD-EPI)NonAf 97.54 Random Glucose 112 H Calcium 9.1 Magnesium 2.1 Total Bilirubin 0.2 AST 26 ALT 41 Alkaline Phosphatase 95 Total Protein 6.6 Albumin 3.9 Active Medications Generic Name Dose Route Start Last Admin Trade Name Freq PRN Reason Stop Dose Admin Acetaminophen 650 mg 10/02/19 17:25 10/02/19 18:48 Tylenol - PO 650 mg Q6H PRN Administration FEVER Albuterol/Ipratropium 1 amp 10/02/19 17:26 Duoneb - NEB Q6H PRN SHORTNESS OF BREATH Atorvastatin Calcium 20 mg 10/02/19 22:00 10/03/19 21:24 Lipitor - PO 20 mg HS JOSÉ MIGUEL Administration Azithromycin 500 mg 10/04/19 10:00 10/04/19 09:45 Zithromax - PO 500 mg DAILY JOSÉ MIGUEL Administration Guaifenesin 600 mg 10/03/19 12:45 10/04/19 09:45 Mucinex - PO 600 mg BID JOSÉ MIGUEL Administration HCTZ/Losartan Potassium 2 tab 10/03/19 10:00 10/04/19 09:48 Hyzaar - PO 2 tab DAILY JOSÉ MIGUEL Administration Piperacillin Sod/Tazobactam 50 mls @ 100 mls/hr 10/03/19 02:00 10/04/19 09:45 Sod 3.375 gm/ Dextrose IVPB 100 mls/hr Q8H-IV JOS ÉMIGUEL Administration Protocol Labetalol HCl 100 mg 10/02/19 22:00 10/04/19 09:45 Normodyne - PO 100 mg BID JOSÉ MIGUEL Administration ASSESSMENT/PLAN: Problem List - Problems (1) Community acquired pneumonia Assessment/Plan: patient presents from urgent care with low oxygen saturations, dyspnea on physical exertion, fevers and chills. chest xray shows acute left lower lobe pnemonia/ct scan pending. patient is immunocompromised on methotrexate for psioratic arthritis on zosyn and prn oxygen Code(s): J18.9 - PNEUMONIA, UNSPECIFIED ORGANISM Qualifiers: Laterality: left Lung location: lower lobe of lung Qualified Code(s): J18.9 - Pneumonia, unspecified organism (2) Acute respiratory failure with hypoxia Assessment/Plan: duonebs, on 2 liters of nasal cannula. maintain oxygen levels above 93%, currently tolerating room air. pre and post prior to discharge Code(s): J96.01 - ACUTE RESPIRATORY FAILURE WITH HYPOXIA (3) Immunosuppression Assessment/Plan: on weekly methotraxate, last received on 09/26/2019 Code(s): D89.9 - DISORDER INVOLVING THE IMMUNE MECHANISM, UNSPECIFIED (4) Psoriatic arthritis Code(s): L40.50 - ARTHROPATHIC PSORIASIS, UNSPECIFIED (5) Hypertension Assessment/Plan: controlled on labetolol 200mb bid, losartan 100, hctz 25 Code(s): I10 - ESSENTIAL (PRIMARY) HYPERTENSION (6) Prophylactic measure Assessment/Plan: fen tolerating po d/c ivf monitor electrolytes full code Code(s): Z29.9 - ENCOUNTER FOR PROPHYLACTIC MEASURES, UNSPECIFIED Visit type - Emergency Visit Emergency Visit: Yes ED Registration Date: 10/02/19 Care time: The patient presented to the Emergency Department on the above date and was hospitalized for further evaluation of their emergent condition. - New Patient This patient is new to me today: No - Critical Care Critical Care patient: No - Discharge Referral Referred to [facility] No
[2019-10-04] MEDS: ATORVASTATIN CA 20 MG TABLET (FP) PO SCH (21:14)
[2019-10-05] MEDS ORDERED: PIPERACILLIN/TAZOBACTAM 3.375 GM VIAL IVPB ONE ×2 (01:45→09:57)
[2019-10-05] MEDS ORDERED: DEXTROSE 5%-WATER - 50 ML IVPB ONE ×2 (01:45→09:58)
[2019-10-05] MEDS: PIPERACILLIN/TAZOB 3.375 GM 3.375 GM in DEXTROSE 5%-WATER - 50 ML IVPB SCH ×2 (02:26→10:16)
[2019-10-05 08:06] LABS: EOS % 5.3 % (0-4.5); HEMATOCRIT 33.2 % (32.4-45.2); LYMPH % 25.7 % (8-40); MCH 30.3 pg (25.7-33.7); MCHC 33.2 g/dl (32.0-36.0); MEAN CELL VOLUME 91.2 fl (80-96); MEAN PLT VOLUME 7.8 fl (7.5-11.1); MONO % 11.4 % (3.8-10.2); NEUT % 56.6 % (42.8-82.8); PLATELET COUNT 330 K/MM3 (134-434); RBC 3.64 M/mm3 (3.60-5.2); RDW 13.9 % (11.6-15.6); WHITE BLOOD COUNT 7.4 K/mm3 (4.0-10.0)
[2019-10-05 08:22] LABS: ALBUMIN 3.7 g/dl (3.4-5.0); BILIRUBIN,TOTAL 0.2 mg/dL (0.2-1); BLOOD UREA NITROGEN 15.3 mg/dL (7-18); CREATININE 0.8 mg/dL (0.55-1.3); MAGNESIUM 2.1 mg/dL (1.8-2.4); POTASSIUM 3.6 mmol/L (3.5-5.1); TOT PROT 6.6 g/dl (6.4-8.2)
[2019-10-05] MEDS ORDERED: PT OWN MED DRAWER 7, Y5N ONE (09:57)
[2019-10-05] MEDS: guaiFENesin 600 MG TABLET.ER (FP) PO SCH (10:16)
[2019-10-05] MEDS: LABETALOL HCL 100 MG TABLET (FP) PO SCH (10:16)
[2019-10-05] MEDS: AZITHROMYCIN 250 MG TABLET PO SCH (10:16)
[2019-10-05] MEDS: LOSARTAN 50MG/HCTZ 12.5MG 1 TAB (FP) PO SCH (10:16)
--- NOTE | 2019-10-05 11:28 | PN ---
Progress Note, Physician History of Present Illness: PULMONARY ALERT COMFORTABLE,-SOB IMPROVING,+ COUGH - Current Medication List Current Medications: Active Medications Acetaminophen (Tylenol -) 650 mg PO Q6H PRN PRN Reason: FEVER Last Admin: 10/02/19 18:48 Dose: 650 mg Albuterol/Ipratropium (Duoneb -) 1 amp NEB Q6H PRN PRN Reason: SHORTNESS OF BREATH Atorvastatin Calcium (Lipitor -) 20 mg PO HS [facility] Last Admin: 10/04/19 21:14 Dose: 20 mg Azithromycin (Zithromax -) 500 mg PO DAILY [facility] Last Admin: 10/05/19 10:16 Dose: 500 mg Guaifenesin (Mucinex -) 600 mg PO BID [facility] Last Admin: 10/05/19 10:16 Dose: 600 mg HCTZ/Losartan Potassium (Hyzaar -) 2 tab PO DAILY [facility] Last Admin: 10/05/19 10:16 Dose: 2 tab Piperacillin Sod/Tazobactam (Sod 3.375 gm/ Dextrose) 50 mls @ 100 mls/hr IVPB Q8H-IV JOSÉ MIGUEL; Protocol Last Admin: 10/05/19 10:16 Dose: 100 mls/hr Labetalol HCl (Normodyne -) 100 mg PO BID [facility] Last Admin: 10/05/19 10:16 Dose: 100 mg - Objective Vital Signs: Vital Signs Temperature 98.4 F 10/05/19 10:20 Pulse Rate 86 10/05/19 10:20 Respiratory Rate 19 10/05/19 10:20 Blood Pressure 148/82 10/05/19 10:20 O2 Sat by Pulse Oximetry (%) 92 L 10/04/19 21:00 Constitutional: Yes: Well Nourished, Calm Eyes: Yes: WNL HENT: Yes: WNL Neck: Yes: WNL Cardiovascular: Yes: Regular Rate and Rhythm, S1, S2 Respiratory: Yes: Diminished Gastrointestinal: Yes: Normal Bowel Sounds, Soft Extremities: Yes: WNL Edema: No Labs: CBC, BMP 10/05/19 06:55 10/05/19 06:55 Problem List - Problems (1) Acute respiratory failure with hypoxia Code(s): J96.01 - ACUTE RESPIRATORY FAILURE WITH HYPOXIA (2) Community acquired pneumonia Code(s): J18.9 - PNEUMONIA, UNSPECIFIED ORGANISM Qualifiers: Laterality: left Lung location: lower lobe of lung Qualified Code(s): J18.9 - Pneumonia, unspecified organism (3) Psoriatic arthritis Code(s): L40.50 - ARTHROPATHIC PSORIASIS, UNSPECIFIED (4) Immunosuppression Code(s): D89.9 - DISORDER INVOLVING THE IMMUNE MECHANISM, UNSPECIFIED Assessment/Plan IMP ACUTE HYPOXEMIC RESPIRATORY FAILURE IMPROVED PNEUMONIA LEFT LUNGCLINICALLY IMPROVING PSORIATIC ARTHRITIS ON METHOTREXATE HTN HLD PLAN ABX PER ID INHALED BRONCHODILATORS SUPPLEMENTAL O2 F/O CHEST X-RAY OUTPATIENT TO CONFIRM RESOLUTION OF INFILTRATES DR BERNAL Problem List - Problems (1) Acute respiratory failure with hypoxia Code(s): J96.01 - ACUTE RESPIRATORY FAILURE WITH HYPOXIA (2) Community acquired pneumonia Code(s): J18.9 - PNEUMONIA, UNSPECIFIED ORGANISM Qualifiers: Laterality: left Lung location: lower lobe of lung Qualified Code(s): J18.9 - Pneumonia, unspecified organism (3) Psoriatic arthritis Code(s): L40.50 - ARTHROPATHIC PSORIASIS, UNSPECIFIED (4) Immunosuppression Code(s): D89.9 - DISORDER INVOLVING THE IMMUNE MECHANISM, UNSPECIFIED
--- NOTE | 2019-10-05 13:31 | PN ---
Progress Note, Physician History of Present Illness: stable no new issues breathing well says she wants to go home - Current Medication List Current Medications: Active Medications Acetaminophen (Tylenol -) 650 mg PO Q6H PRN PRN Reason: FEVER Last Admin: 10/02/19 18:48 Dose: 650 mg Albuterol/Ipratropium (Duoneb -) 1 amp NEB Q6H PRN PRN Reason: SHORTNESS OF BREATH Atorvastatin Calcium (Lipitor -) 20 mg PO HS [facility] Last Admin: 10/04/19 21:14 Dose: 20 mg Azithromycin (Zithromax -) 500 mg PO DAILY [facility] Last Admin: 10/05/19 10:16 Dose: 500 mg Guaifenesin (Mucinex -) 600 mg PO BID [facility] Last Admin: 10/05/19 10:16 Dose: 600 mg HCTZ/Losartan Potassium (Hyzaar -) 2 tab PO DAILY [facility] Last Admin: 10/05/19 10:16 Dose: 2 tab Piperacillin Sod/Tazobactam (Sod 3.375 gm/ Dextrose) 50 mls @ 100 mls/hr IVPB Q8H-IV JOSÉ MIGUEL; Protocol Last Admin: 10/05/19 10:16 Dose: 100 mls/hr Labetalol HCl (Normodyne -) 100 mg PO BID [facility] Last Admin: 10/05/19 10:16 Dose: 100 mg - Objective Vital Signs: Vital Signs Temperature 98.4 F 10/05/19 10:20 Pulse Rate 86 10/05/19 10:20 Respiratory Rate 19 10/05/19 10:20 Blood Pressure 148/82 10/05/19 10:20 O2 Sat by Pulse Oximetry (%) 92 L 10/04/19 21:00 Constitutional: Yes: No Distress, Calm Cardiovascular: Yes: S1, S2 Respiratory: Yes: Regular, CTA Bilaterally Gastrointestinal: Yes: Normal Bowel Sounds, Soft Musculoskeletal: Yes: WNL Extremities: Yes: WNL Neurological: Yes: Alert, Oriented Psychiatric: Yes: Alert, Oriented Labs: CBC, BMP 10/05/19 06:55 10/05/19 06:55 Assessment/Plan Problem List - Problems (1) Acute respiratory failure with hypoxia Code(s): J96.01 - ACUTE RESPIRATORY FAILURE WITH HYPOXIA (2) Community acquired pneumonia Code(s): J18.9 - PNEUMONIA, UNSPECIFIED ORGANISM Qualifiers: Laterality: left Lung location: lower lobe of lung Qualified Code(s): J18.9 - Pneumonia, unspecified organism (3) Psoriatic arthritis Code(s): L40.50 - ARTHROPATHIC PSORIASIS, UNSPECIFIED (4) Immunosuppression Code(s): D89.9 - DISORDER INVOLVING THE IMMUNE MECHANISM, UNSPECIFIED plan can change to oral abx i have discussed in detail with the patient about cutting short iv treatment she understands rest as per the team can change to augmentin for 7 days more
--- NOTE | 2019-10-05 14:29 | DS ---
Physical Exam: SUBJECTIVE: Patient seen and examined at the bedside. feels better today, walking around without dyspnea or malaise. wants to go home, has a disabled sister she cares for. I spoke to her primary care doctor, Dr. Lexy Graham and discussed hospital stay and made her aware patient will be discharged with PO Augmentin. Dr. Graham to see her outpatient. OBJECTIVE: Patient is a 54 year old female with a significant past medical history of hypertension, hyperlipidemia, psoriatic arthritis (on weekly methotrexate - gets doses every Sunday). Patient presents to the ED from 10/02/2019 from urgent care and reports four days of subjective fevers, chills, congestion and productive cough. Patient states symptoms have been going on for almost a week. She has used over the counter medications without relief. She went to urgent care to be evaluated but was found to have low oxygen saturation in the 80s and was transferred to [facility] for further evaluation. She denies any chest pain, denies palpitations. In the ED she was hypoxic at rest to the low 90s and dropped to the 80s with ambulation. She has mild wheezing of her anterior lungs and her left lung base is diminished. Chest xray showed possible left lung pneumonia, confirmed by Chest CT. She was given nebulizer treatments for her hypoxia, however, her oxygen sats remained low and therefore placed on 2 liters of nasal canula. She has been since weaned off oxygen and a respiratory pre and post shows stable oxygen levels. Her diagnosis is community acquired pneumonia and was treated with Zosyn and Azithromycin since admission. She will be sent home on Augmentin 875 for 7 more days and Azithromycin for 4 more days. She will be discharged home today with follow up with Dr. Lexy Graham MD who is aware of admission and plans for discharge. Vital Signs Period Temp Pulse Resp BP Sys/Shankar Pulse Ox Last 24 Hr 98.4 F-99.1 F 71-97 19-20 113-150/62-86 92-94 PHYSICAL EXAM GENERAL: Awake, alert, and fully oriented, in no acute distress. HEAD: Normal with no signs of trauma. EYES: Pupils equal, round and reactive to light, extraocular movements intact, sclera anicteric, conjunctiva clear. No lid lag. EARS, NOSE, THROAT: Ears normal, nares patent, oropharynx clear without exudates. Moist mucous membranes. NECK: Normal range of motion, supple without lymphadenopathy, JVD, or masses. LUNGS: clear lungs, stable saturations on room air. HEART: Regular rate and rhythm ABDOMEN: Soft, nontender, not distended, normoactive bowel sounds, no guarding, no rebound, no masses. No hepatomegaly or splenomegaly. MUSCULOSKELETAL: No CVA tenderness. UPPER EXTREMITIES: No clubbing. No peripheral edema. LOWER EXTREMITIES: No peripheral edema. NEUROLOGICAL: Normal speech. Normal gait. LABS Laboratory Results - last 24 hr 10/05/19 10/05/19 06:55 06:55 WBC 7.4 RBC 3.64 Hgb 11.0 Hct 33.2 MCV 91.2 MCH 30.3 MCHC 33.2 RDW 13.9 Plt Count 330 MPV 7.8 Absolute Neuts (auto) 4.2 Neutrophils % 56.6 Lymphocytes % 25.7 Monocytes % 11.4 H Eosinophils % 5.3 H Basophils % 1.0 Nucleated RBC % 0 Sodium 137 Potassium 3.6 Chloride 102 Carbon Dioxide 27 Anion Gap 8 BUN 15.3 Creatinine 0.8 Est GFR (CKD-EPI)AfAm 96.19 Est GFR (CKD-EPI)NonAf 83.00 Random Glucose 127 H Calcium 9.0 Magnesium 2.1 Total Bilirubin 0.2 AST 27 ALT 39 Alkaline Phosphatase 93 Total Protein 6.6 Albumin 3.7 HOSPITAL COURSE: Date of Admission:10/02/19 Date of Discharge: 10/05/19 Minutes to complete discharge: 60 Discharge Summary Problems reviewed: Yes Reason For Visit: COMMUNITY ACQUIRED PNEUMONIA Current Active Problems Acute respiratory failure with hypoxia (Acute) Community acquired pneumonia (Acute) Hypertension (Acute) Immunosuppression (Acute) Prophylactic measure (Acute) Psoriatic arthritis (Acute) Condition: Improved - Instructions Diet, Activity, Other Instructions: Ms Arlen Cuellar: You were admitted to [facility] on 10/02/2019 for community acquired pneumonia. You were treated with IV antibiotics on admission an we will be converting you to oral antibiotics. During your stay, you were seen by the hospitalist team and also seen by a live out nanny and ID specialist. Here are our discharge recommendations: Pneumonia: You were treated with IV antibiotics and oxygen therapy. You oxygen levels are now stable and you do not qualify for home oxygen. Take the following medications for continued treatment of the pneumonia: Augmentin 875mg TWICE per day for 7 more days - start tonight and take at 8am and 8pm Azithormycin 500mg ONCE PER DAY for 4 more days - start tomorrow 10/06 at 8am Take a probiotic (over the counter) for 7 days while on the antibiotics to prevent stomach upset Please do not take the methotrexate until your PCP directs you to. Please have a repeat chest xray once your complete the antibiotics to assure that your pneumonia has cleared. questions? Please call me if you have questions. I am available for you. Frieda Stephens [place] MANAGER BUSINESS MANAGEMENT [phone] [facility] Referrals: Sang Blanco MD [Staff Physician] - Lexy Graham [Primary Care Provider] - Disposition: HOME - Home Medications Comprehensive Discharge Medication List: Ambulatory Orders Atorvastatin Ca [Lipitor] 20 mg PO HS 05/29/16 Losartan/Hydrochlorothiazide [Losartan-Hctz 100-25 mg Tab] 1 each PO DAILY 05/29 Amoxicillin/Potassium Clav [Augmentin 875-125 Tablet] 1 each PO BID #14 tablet 10/05/19 Azithromycin 250 mg PO DAILY #8 tablet 10/05/19 Guaifenesin [Mucinex -] 600 mg PO BID #14 tablet.er 10/05/19 Labetalol HCl [Normodyne -] 100 mg PO BID tablet 10/05/19 Problem List - Problems (1) Community acquired pneumonia Assessment/Plan: treated with IV zosyn and IV Azithromycin. Convert to oral augmentin 875 x 7 days and azithromycin 500 x 4 more days chest xray to be repeated as an outpatient. Stable oxygen saturations Code(s): J18.9 - PNEUMONIA, UNSPECIFIED ORGANISM Qualifiers: Laterality: left Lung location: lower lobe of lung Qualified Code(s): J18.9 - Pneumonia, unspecified organism (2) Acute respiratory failure with hypoxia Assessment/Plan: resolved, tolerating room air Code(s): J96.01 - ACUTE RESPIRATORY FAILURE WITH HYPOXIA (3) Immunosuppression Assessment/Plan: on weekly methotraxate, last received on 09/26/2019, patient instructed to not resume methotrexate until it is resumed by her PCP Code(s): D89.9 - DISORDER INVOLVING THE IMMUNE MECHANISM, UNSPECIFIED (4) Psoriatic arthritis Code(s): L40.50 - ARTHROPATHIC PSORIASIS, UNSPECIFIED (5) Hypertension Assessment/Plan: controlled on labetolol 200mb bid, losartan 100, hctz 25 Code(s): I10 - ESSENTIAL (PRIMARY) HYPERTENSION (6) Prophylactic measure Assessment/Plan: discharge home Code(s): Z29.9 - ENCOUNTER FOR PROPHYLACTIC MEASURES, UNSPECIFIED This patient is new to me today: No Emergency Visit: Yes ED Registration Date: 10/02/19 Care time: The patient presented to the Emergency Department on the above date and was hospitalized for further evaluation of their emergent condition. Critical Care patient: No - Discharge Referral Referred to [facility] No
[2019-10-05 15:22] VITALS: BP 143/84; PULSE 80; TEMP 98.5
== END 2019-10-05 15:24 | disposition home or self-care (01) | DRG 193 ==
LOC: JER 12:00 → JERBED 15:12 → J5S 19:59
PROVIDERS: ADMIT Internal Medicine; ATTEND Nurse Practitioner Family
DX: J18.9 Pneumonia, unspecified organism (principal); J96.01 Acute respiratory failure with hypoxia; I10 Essential (primary) hypertension; E78.5 Hyperlipidemia, unspecified; L40.50 Arthropathic psoriasis, unspecified; D89.9 Disorder involving the immune mechanism, unspecified
CPT/HCPCS: 36415; 36600; 71046-TC-FY; 71250-TC; 80048; 80053; 82375; 82803; 83050; 83735; 84100; 84443; 84484; 85025; 85027; 87040; 87070; 87205; 87804; 87899; 93005; 93010; 94761; 99284-25

== ENCOUNTER 2023-10-31 13:56 | Emergency (ER) | payer OTHER ==
[2023-10-31 14:11] VITALS: BP 137/87; PULSE 67; RESP 16; TEMP 98.4; BMI 41.1
[2023-10-31] MEDS ORDERED: ACETAMINOPHEN 500 MG TABLET (FP) PO ONE (14:15)
[2023-10-31] MEDS ORDERED: LIDOCAINE 5% TOPICAL PATCH TP ONE (14:15)
[2023-10-31] MEDS ORDERED: ACETAMINOPHEN 500 MG TABLET (FP) ONE (14:29)
[2023-10-31] MEDS ORDERED: LIDOCAINE 5% TOPICAL PATCH ONE (14:30)
[2023-10-31] MEDS ORDERED: DIPHTH,PERTUSS(ACELL),TET 0.5 ML DISP.SYRIN IM ONE ×2 (15:13→15:49)
[2023-10-31] MEDS ORDERED: LIDOCAINE PATCH REMOVAL MC ONE (22:00)
== END 2023-10-31 16:16 | disposition home or self-care (01) ==
LOC: FER 13:56
PROC: 3E0234Z Introduction of Serum, Toxoid and Vaccine into Muscle, Percutaneous Approach (ICD-10-PCS; principal; 2023-10-31)
DX: M25.551 Pain in right hip (principal); M54.9 Dorsalgia, unspecified; M79.661 Pain in right lower leg; W17.82XA Fall from (out of) grocery cart, initial encounter; Y92.512 Supermarket, store or market as the place of occurrence of the external cause
CPT/HCPCS: 70450-TC; 72125-TC; 73502-TC-RT-FY; 73552-TC-RT-FY; 73562-TC-RT-FY; 73590-TC-RT-FY; 73610-TC-RT-FY; 73630-TC-RT-FY; 90715; 99284-25